=== PATIENT | male | born 1955 | race African-American/Black ===

== ENCOUNTER 2020-04-05 10:38 | Inpatient (IN) | payer OTHER, BC ==
[~2020-04-05] VITALS: Ht 190.5 cm; Wt 117.0 kg
[2020-04-05 10:49] VITALS: BP 215/122
[2020-04-05 11:41] LABS: HEMATOCRIT 31.1 % (42.0-52.0); HEMOGLOBIN 9.8 gm/dL (14.0-18.0); MCH 27.8 pg (26.0-34.0); MCHC 31.6 g/dL (28.0-37.0); MCV 88.2 fL (80.0-100.0); PLATELET COUNT 199 thou/uL (150-400); RBC 3.53 mil/uL (4.50-6.00); WBC 8.3 thou/uL (4.0-11.0)
[2020-04-05 11:48] LABS: CALCIUM 8.9 mg/dL (8.5-10.1); CREATININE 1.8 mg/dL (0.7-1.3); POTASSIUM 4.1 mmol/L (3.5-5.1)
[2020-04-05 11:54] LABS: ALBUMIN 3.4 g/dL (3.4-5.0); TOTAL BILIRUBIN 0.4 mg/dL (0.2-1.0); TOTAL PROTEIN 7.1 g/dL (6.4-8.2)
[2020-04-05 12:58] LABS: ABSOLUTE NEUTROPHILS 6.3 thou/uL (1.4-8.2); PLATELET ESTIMATE NORMAL
[2020-04-05 13:15] VITALS: BP 207/105
[2020-04-05 14:20] VITALS: BP 184/84
[2020-04-05] MEDS ORDERED: COZAAR 25 MG TA25 MG PO (18:03)
[2020-04-05] MEDS ORDERED: PLAVIX 75 MG TA75 MG PO (18:04)
[2020-04-05] MEDS ORDERED: ATORVASTATIN CA80 MG PO (18:04)
[2020-04-05] MEDS ORDERED: COREG25 MG PO (18:05)
[2020-04-05] MEDS ORDERED: CYMBALTA30 MG PO (18:06)
[2020-04-05] MEDS ORDERED: PRED FORTE 1% EY5 M1 OPHTHALMIC (18:06)
[2020-04-05] MEDS ORDERED: LISINOPRIL20 MG PO (18:07)
[2020-04-05] MEDS ORDERED: CASODEX 50 MG T50 M1 PO (18:08)
[2020-04-05] MEDS ORDERED: CARVEDILOL12.5 MG PO (18:08)
[2020-04-05] MEDS ORDERED: NORVASC 2.5 MG2.5 M1 PO (18:09)
[2020-04-05] MEDS ORDERED: BASAGLAR K100 UNIT/1 (18:10)
[2020-04-05] MEDS ORDERED: NOVOLOG FL100 UNIT/M SC (18:11)
[2020-04-05 18:15] VITALS: BP 138/70
[2020-04-05 19:26] VITALS: BP 137/82
--- NOTE | 2020-04-05 20:30 | NUR ---
NEW ADMIT FOR HTN URGENCY, AND CELLULITIS ON RIGHT GREAT TOE AND SECOND TOE. ALERT X4 FROM HOME BY SELF. HX OF CVA WITH LEFTSIDED WEAKNESS. USES ELECTRIC WHEELCHAIR AND ABLE TO PROVIDE SELF CARE AT HOME. PICTURE OF WOUND TAKEN. MEDICATION RECONCILED. ADMISSION ASSESMENT, HISTORY, EDUCATION COMPLETED. FALL PRECATIONS IN PLACE. CALL LIGHT AND PERSONAL ITEMS IN REACH.
[2020-04-06] VITALS (7 sets, daily range): BP systolic 144–167; BP diastolic 83–98
--- NOTE | 2020-04-06 14:04 | NUR ---
Nutrition: pt admitted with HTN urgency, cellulitis of right great toe and second toe. Wound care to see. Pt followed by Dr De Guzman. PMH: DM, neuropathy, CVA, obesity, advanced prostate CA. Pt reports good appetite on heart healthy diet. BG [phone]. On glargine, SSI. Will add carb controlled to diet order-discussed with pt-agrees. Drinks premier protein daily at home. Will add ensure max once daily. Understands protein needs. Low risk otherwise.
--- NOTE | 2020-04-06 15:40 | NUR ---
ASSUMED CARE FROM 2N AT 1540. PT. PLEASANT WITH MEDS AND ASSESSMENT. RT. GREAT TOE AND TOE NEXT TO IT ARE BLACKENED. PEDAL PULSES PRESENT BUT DEMINISHED ON THE RT. FOOT. BLOOD SUGAR TAKEN AND INSULIN GIVEN PER DR. PATE. PT. STATES HE IS NOT ALLERGIC TO ANYTHING.
--- NOTE | 2020-04-06 16:08 | NUR ---
FAXED REFERRAL TO [facility] RECEIVED CONFIRMATION AND LEFT MSG WITH TIAGO IN INTAKE. DP TO FOLLOW.
--- NOTE | 2020-04-06 16:12 | NUR ---
Case opened to follow for dc planning. Pt is a&ox4 and indicates he lives in his home in [place]. No steps and everything is on the main level. He uses an elect w/c for mobility both inside and outside the home since his stroke a few years ago. He transfer from the chair to the bathroom or bed with a cane. He has his elec w/c in his room at this time. He utilizes [employer] for w/c van rides to his dr acevedo. His pcp is Dr. Yeimi Norwood. He has had hh in the past with [facility]. His toe wounds are new and he is concerned about being able to get out to [place] for f/u care. He is interested in HH RN, and thearpy f/u due to this and increased weakness. He denies preference for HH agency. He has supportive neighbors and friend Andrea. His dtr is his dpoa and she is a local physician Dr. Elo Ace. He reports that she is busy and sometimes hard to reach. DC certified financial planner to send referral for HH to [facility] as they service his area and may be able to start him within 24hrs of dc. Pt is on ivatb and wound care is consulted. Pt will need w/c van ride home at [place].
[2020-04-07] VITALS: BP 157/87
[2020-04-07 06:08] VITALS: BP 157/87
--- NOTE | 2020-04-07 06:12 | NUR ---
Assumed care on 04/06/20 @ 19:15, in bed A&Ox4, pleasant and converstional, sharing his hobby of photography. Cooperative with medication administration, @ about midnight c/o left side of face on the same side as HX of CVA is tinmelissa, B/P 157/87, PCP Abbie assessed pt and ordered a CT scan without contrast, results in chart. Will continue to monitor as per unit protocol.
[2020-04-07 09:52] VITALS: BP 144/89
[2020-04-07] MEDS ORDERED: LANTUS SUBQ (10:38)
[2020-04-07] MEDS ORDERED: BACTRIM DS TAB1 EACH PO (10:39)
[2020-04-07 11:28] VITALS: BP 144/89
[2020-04-07 13:09] VITALS: BP 144/89
--- NOTE | 2020-04-07 14:24 | NUR ---
PT A&OX4, VSS, PAIN IN LEFT HIP. PAIN MEDICATION GIVEN. PHOTO OF RIGHT FOOT TAKEN YESTERDAY NO NEED TODAY. CHEST PORT DEACCESSED. PATIENT COMMUNICATES UNDERSTANDING OF DISCHARGE PAPERWORK. NO SIGNS OF DISTRESS. TELE MONITOR REMOVED. ALL BELONGINGS WITH PATIENT. PATIENT LEFT WITH TRANSPORT IN HIS PERSONAL ELECTRIC WHEELCHAIR.
--- NOTE | 2020-04-07 17:12 | NUR ---
I have reviewed the documentation by MARGARET LOUIE from 04/07/20 to 04/07/20 and I concur with it. AMARA CARROLL, PT, DPT
== END 2020-04-07 14:41 | disposition home health service (06) | DRG 638 ==
LOC: ER 10:38 → 2N 14:04 → 4W 14:06
PROVIDERS: Physician Assistant; ADMIT Hospitalist; ATTEND Hospitalist
DX: E11.621 Type 2 diabetes mellitus with foot ulcer (principal); E87.1 Hypo-osmolality and hyponatremia; E11.22 Type 2 diabetes mellitus with diabetic chronic kidney disease; L97.519 Non-pressure chronic ulcer of other part of right foot with unspecified severity; E11.40 Type 2 diabetes mellitus with diabetic neuropathy, unspecified; I16.0 Hypertensive urgency; N18.9 Chronic kidney disease, unspecified; E66.9 Obesity, unspecified; E11.65 Type 2 diabetes mellitus with hyperglycemia; Z86.73 Personal history of transient ischemic attack (TIA), and cerebral infarction without residual deficits; Z68.32 Body mass index [BMI] 32.0-32.9, adult; S92.351G Displaced fracture of fifth metatarsal bone, right foot, subsequent encounter for fracture with delayed healing; Z79.899 Other long term (current) drug therapy; N17.9 Acute kidney failure, unspecified
CPT/HCPCS: 10047; 10081